=== PATIENT | female | born 1985 ===

== ENCOUNTER 2020-11-11 21:16 | Emergency (ER) | payer SELFPAY ==
[~2020-11-11] VITALS: Ht 160 cm; Wt 55.3 kg
[2020-11-11] MEDS ORDERED: OLANZAPINE 10 MG VIAL IM ONE ×2 (21:28→21:30)
--- NOTE | 2020-11-11 21:28 | NUR ---
ATUL, UNIT [id number], OFFICERS POOJA (SERIAL #[id number]) AND MONIQUE (SERIAL #[id number]) AT BEDSIDE.
--- NOTE | 2020-11-11 21:30 | NUR ---
PT BIB [facility], FOUND ON THE STREETS YELLING AND SCREAMING, UNABLE TO OBTAIN HX. PATIENT SCREAMING AND YELLING, SEVERELY AGITATED. DOES NOT WANT TO DISCLOSE HER NAME.
[2020-11-11 21:59] LABS: CARBON DIOXIDE 20 mmol/L (21-32); CHLORIDE 106 mmol/L (98-107); GLUCOSE 101 mg/dL (74-106); POTASSIUM 3.9 mmol/L (3.5-5.1); UREA NITROGEN, BLOOD 14 mg/dL (7-18)
[2020-11-11 22:03] LABS: CREATINE KINASE, TOTAL 179 U/L (26-192); ETHANOL < 3 MG/DL (0-0)
[2020-11-11 22:05] LABS: ACETAMINOPHEN < 2.0 ug/mL (10-30); ALANINE AMINOTRANSFERASE 18 U/L (14-59); ALKALINE PHOSPHATASE 55 U/L (50-136); ASPARTATE AMINOTRANSFERASE 16 U/L (15-37); BILIRUBIN,DIRECT 0.1 mg/dL (0.0-0.2); BILIRUBIN,TOTAL 0.5 mg/dL (0.2-1.0); TOTAL PROTEIN, SERUM 7.2 g/dL (6.4-8.2)
[2020-11-11 22:07] LABS: HEMATOCRIT 40.5 % (31.2-41.9); MEAN CORPUSCULAR HEMOGLOBIN 31.5 uug (24.7-32.8); MEAN CORPUSCULAR VOLUME 92.4 fL (75.5-95.3); PLATELET COUNT (AUTO) 238 K/uL (179-408)
[2020-11-11 22:12] LABS: THYROID STIMULATING HORMONE 6.387 mIU/mL (0.358-3.740)
[2020-11-11 23:25] LABS: *BILIRUBIN,URIN NEGATIVE (NEGATIVE); *BLOOD, URINE NEGATIVE (NEGATIVE); *CLARITY,URINE SLIGHTLY CLOUDY (CLEAR); *COLOR,URINE YELLOW (YELLOW); *KETONES,URINE NEGATIVE (NEGATIVE); *UROBILINOGEN,URINE 0.2 E.U./dl (NORMAL); LEUKOCYTE ESTERASE ,URINE NEGATIVE (NEGATIVE); NITRITE, URINE NEGATIVE (NEGATIVE); UGLUCOSE NEGATIVE (NEGATIVE)
--- NOTE | 2020-11-11 23:30 | NUR ---
PATIENT APPEARS CALM AND ASLEEP AT THIS TIME. CIRCULATION CHECK ON BOTH UE AND LE. 4 POINTS RESTRAINT REMAINS IN PLACE. CONTINUE TO MONITOR.
[2020-11-11 23:34] LABS: *AMPHETAMINE, URINE NEGATIVE (NEGATIVE); *CANNABINOID, URINE NEGATIVE (NEGATIVE); *COCCAINE, URINE NEGATIVE (NEGATIVE); *OPIATE, URINE NEGATIVE (NEGATIVE); *PHENCYCLIDINE SCREEN,URINE NEGATIVE (NEGATIVE)
[2020-11-11 23:38] LABS: RBC,URINE 0-3 /HPF (0-3); WBC,URINE 0-3 /HPF (0-3)
[2020-11-11 23:39] LABS: BACTERIA,URINE FEW /HPF (NONE SEEN); SQUAMOUS EPITHELIAL CELL,UR MODERATE /HPF (NONE SEEN); URINE AMORPHOUS PHOSPHATES MANY /HPF
--- NOTE | 2020-11-12 00:45 | NUR ---
PATIENT WOKE UP ASKING FOR JUICE. APPLE JUICE PROVIDED AT THIS TIME.
--- NOTE | 2020-11-12 01:10 | NUR ---
Patient woke up and become severely agitated, trying to get restrain off, yeeling and screaming. Dr. Bullock at bedside for MSE.
[2020-11-12] MEDS ORDERED: LORAZEPAM 2 MG/1 ML VIAL IM ONE ×2 (01:15→01:30)
[2020-11-12] MEDS ORDERED: LORAZEPAM 2 MG/1 ML VIAL ONE (01:17)
--- NOTE | 2020-11-12 02:51 | NUR ---
Patient sleeping at this time. Appears comfortable.
--- NOTE | 2020-11-12 08:27 | NUR ---
Patient attempted to wake up at this time, but still sleepy and attempts to vocalize name but falls right back to sleep. Vital signs noted and recorded. Patient released from restraints, as she is sleeping, and does not pose any threat to herself and others at this time.
--- NOTE | 2020-11-12 09:43 | NUR ---
Pt cleared for discharge by ER MD. Pt is cleared from any medical reasons to stay. Pt continues to be non-cooperative though and wanted to leave without signing discharge paper work, refused all resources offered and did not want to leave her name. She ambulated out of ED in steady gait.
== END 2020-11-12 09:53 | disposition left against medical advice (07) ==
LOC: ER 21:18
DX: R41.0 Disorientation, unspecified (principal)
CPT/HCPCS: 36415; 80048; 80076; 80299; 80307; 80320; 81001; 82550; 84443; 84702; 85025; 85730; 96372 ×2; 99285; J2060; A4663; G0480; J2358